=== PATIENT | female | born 1945 | race Caucasian/White ===

== ENCOUNTER → 2017-05-02 | Outpatient (CLI) | payer MEDICARE, OTHER | LOC: OPSV 08:36 → CT 11:30 | DX: D89.2 Hypergammaglobulinemia, unspecified (principal); R76.8 Other specified abnormal immunological findings in serum; K76.0 Fatty (change of) liver, not elsewhere classified; Z85.048 Personal history of other malignant neoplasm of rectum, rectosigmoid junction, and anus; Z98.890 Other specified postprocedural states; E86.0 Dehydration | CPT/HCPCS: 71260; 96360; 96361; J7030; J7050; Q9962 ==

== ENCOUNTER 2021-09-28 19:48 | Emergency (ER) | payer MEDICARE, OTHER | END 2021-09-28 23:05 | disposition home or self-care (01) | LOC: ER1 19:48 | DX: M25.551 Pain in right hip (principal); M25.561 Pain in right knee; M79.651 Pain in right thigh; R05.9 Cough, unspecified; J44.9 Chronic obstructive pulmonary disease, unspecified; Z90.710 Acquired absence of both cervix and uterus | CPT/HCPCS: 71045; 73502; 73552; 73564; 93005; 99284 ==